=== PATIENT | female | born 1980 | race Caucasian/White ===

== ENCOUNTER 2016-07-11 16:49 | Emergency (ER) | payer OTHER ==
[~2016-07-11] VITALS: Wt 72.0 kg
[~2016-07-11 16:49] MED LIST: ACET500C5 PO; IBUP400T22 PO; LORA1TAB54 PO; PROM6.25 PO
[2016-07-11] MEDS ORDERED: KETOROLAC 60 MG INJ IM STA (17:37)
[2016-07-11] MEDS ORDERED: IBUP-1542 PO (17:38)
[2016-07-11] MEDS ORDERED: TRAM50TA2 PO (17:38)
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
== END 2016-07-11 17:55 | disposition home or self-care (01) ==
LOC: FTE 16:49
DX: M54.41 Lumbago with sciatica, right side (principal)
CPT/HCPCS: 96372; J1885; Z7502

== ENCOUNTER 2016-08-15 14:49 | Emergency (ER) | payer OTHER ==
[~2016-08-15] VITALS: Ht 154.9 cm; Wt 73.0 kg
[~2016-08-15 14:49] MED LIST changes: +IBUP-1542 PO; +TRAM50TA2 PO
[2016-08-15 14:56] VITALS: Ht 154.9 cm; Wt 73.0 kg
[2016-08-15] MEDS ORDERED: [UNRECOGNIZED DRUG - CODE] PO (16:01)
[2016-08-15] MEDS ORDERED: IBUP-1542 PO (16:01)
[2016-08-15] MEDS ORDERED: ONDA8TAB14 PO (16:01)
--- NOTE | 2016-08-15 16:18 | ERA ---
ER Documentation Chief Complaint Date/Time DATE: 08/15/16 TIME: 16:[address], cough, nausea x 3 days HPI 36-year-old female patient presents to the ER complaining of pharyngitis, cough , and nausea. Patient describes her symptoms cumulatively as a 6 out of 10 pain scale. Symptoms have been going on for 3 days. Patient has not tried any medications to relieve her symptoms. Patient denies nasal congestion, sputum production, ear pain, wheezing, shortness of breath, trouble breathing, body aches, chest pain, change in voice, or fever. ROS All systems reviewed and are negative except as per history of present illness. Medications Home Meds Active Scripts Dextromethorpan-Phenylephrine (Triaminic Daytime Cold-Cough) 118 Ml Liquid, 10 ML PO Q6H Y for COUGH for 7 Days, ML Prov:ANEESH ZABALA PA-C 08/15/16 Ondansetron (Ondansetron Odt) 8 Mg Tab.rapdis, 8 MG PO Q6H Y for NAUSEA AND/OR VOMITING, #10 TAB Prov:ANEESH ZABALA PA-C 08/15/16 Ibuprofen* (Motrin*) 600 Mg Tab, 600 MG PO Q6H Y for PAIN AND OR ELEVATED TEMP, #30 TAB Prov:ANEESH ZABALA PA-C 08/15/16 Tramadol HCl (Tramadol HCl) 50 Mg Tablet, 50 MG PO Q4 Y for PAIN, #20 TAB Prov:MEL CANALES MD 07/11/16 Ibuprofen* (Motrin*) 600 Mg Tab, 600 MG PO Q6, #20 TAB Prov:MEL CANALES MD 07/11/16 Acetaminophen* (Tylophen*) 500 Mg Capsule, 1 CAP PO Q6H Y for PAIN AND OR ELEVATED TEMP, #20 CAP Prov:CEZAR GIORDANO PA-C 12/23/15 Ibuprofen* (Motrin*) 400 Mg Tab, 400 MG PO Q6H Y for PAIN, #30 TAB Prov:MATTHEW FRANCES PA-C 07/25/15 Loratadine/Pseudoephedrine* (Claritin-D* 12 Hr) 5-120 Mg Tab.er.12h, 1 TAB PO Q12, #14 TAB.SA Prov:MATTHEW FRANCES PA-C 07/25/15 Promethazine w/Codeine* (Phenergan w/Codeine* Syrup) 5 Ml Syrup, 5 ML PO Q4H Y for COUGH, #300 ML Prov:MATTHEW FRANCES PA-C 07/25/15 Allergies Allergies: Coded Allergies: No Known Drug Allergies (Verified Allergy, Unknown, 04/06/15) PMhx/Soc History of Surgery: No Anesthesia Reaction: No Hx Neurological Disorder: No Hx Respiratory Disorders: No Hx Cardiac Disorders: No Hx Psychiatric Problems: No Hx Miscellaneous Medical Probl: No Hx Alcohol Use: No Hx Substance Use: No Hx Tobacco Use: No Physical Exam Vitals Vital Signs Date Time Temp Pulse Resp B/P Pulse Ox O2 Delivery O2 Flow Rate FiO2 08/15/16 14:56 98.7 88 16 139/77 98 Physical Exam Const: Well-appearing obese 36-year-old female Head: Atraumatic Eyes: Normal Conjunctiva ENT: Normal External Ears, Nose and Mouth. Neck: Full range of motion..~ No meningismus. Resp: Clear to auscultation bilaterally Cardio: Regular rate and rhythm, no murmurs Abd: Soft, non tender, non distended. Normal bowel sounds Skin: No petechiae or rashes Back: No midline or flank tenderness Ext: No cyanosis, or edema Neur: Awake and alert Psych: Normal Mood and Affect Procedures/MDM Patient presents for pharyngitis, nausea and cough. Patient most likely has an upper respiratory infection. Patient has clear lung sounds and her vital signs are stable. At this time we will treat her symptomatically. And have her return to clinic if symptoms worsen. Departure Patient Instructions: Uri, Viral, No Abx (Adult) ANEESH ZABALA PA-C Aug 15, 2016 16:17
== END 2016-08-15 16:05 | disposition home or self-care (01) ==
LOC: E/R 14:49
DX: R05 Cough (principal); J02.9 Acute pharyngitis, unspecified; R11.0 Nausea
CPT/HCPCS: 99283